=== PATIENT | male | born 1970 | race Caucasian/White ===

== ENCOUNTER 2017-05-08 11:58 | Emergency (ER) | payer OTHER ==
[~2017-05-08] VITALS: Ht 175.3 cm; Wt 86.2 kg
[~2017-05-08 11:58] MED LIST: BACLOFEN10 M1 PO; DILAUDID2 M1 PO; HYDROCODONE/ACE1 TA1 PO; IBUPROFEN800 M1 PO; OXYCODONE-ACET1 EAC1 PO; PERCOCET 5-3251 EACH PO; TAMSULOSIN HCL0.4 M1 PO; XANAX0.5 M1 PO
[2017-05-08 12:09] VITALS: BP 141/93
[2017-05-08] MEDS ORDERED: AMOXICILLIN875 M1 PO (13:51)
[2017-05-08] MEDS ORDERED: PERCOCET 5-3251 EACH PO (13:51)
[2017-05-08] MEDS ORDERED: BACTRIM DS TAB1 EACH PO (13:51)
--- NOTE | 2017-05-08 13:52 | ED SKIN/ALLERGY COMPLAINT ---
History of Present Illness General Chief Complaint: Skin Rash/ Abcess Stated Complaint: INFECTION TO LEFT ARM Source: patient Exam Limitations: no limitations Vital Signs & Intake/Output Vital Signs & Intake/Output Vital Signs Date Time Temp Pulse Resp B/P B/P Pulse O2 O2 Flow FiO2 Mean Ox Delivery Rate 05/08 1209 98.2 88 20 141/93 98 Room Air Allergies Coded Allergies: NO KNOWN ALLERGIES (09/13/16) Reconcile Medications Alprazolam (Xanax) 0.5 MG TABLET 1 TAB PO TIDPRN PRN ANXIETY Amoxicillin 875 MG TABLET 1 TAB PO BID ABSCESS Baclofen 10 MG TABLET 1 TAB PO TIDPRN PRN muscle spasm/strain Hydromorphone HCl (Dilaudid) 2 MG TABLET 1 TAB PO 4XDP PRN PAIN Ibuprofen 800 MG TABLET 1 TAB PO Q6PRN PRN pain Oxycodone HCl/Acetaminophen (Percocet 5-325 MG Tablet) 5 MG-325 MG TABLET 1-2 TAB PO Q6P PRN PAIN Oxycodone HCl/Acetaminophen (Percocet 5-325 MG Tablet) 5 MG-325 MG TABLET 1-2 TAB PO Q6P PRN severe pain Sulfamethoxazole/Trimethoprim (Bactrim Ds Tablet) 800 MG-160 MG TABLET 1 TAB PO BID ABSCESS Triage Note: PT STATES HE CUT HIS ARM LAST WEEK WHILE WORKING OUTSIDE AND IT'S INFECTED NOW. Triage Nurses Notes Reviewed? yes Onset: Abrupt Duration: week(s): (1), constant Timing: recent history Severity: moderate, severe Location: extremities No Modifying Factors: none HPI: 46-year-old male comes into emergency room with swelling and pain to his right wrist. Patient reports that a week ago he had cut his right wrist by accident on [employer] and now reports it is swollen and painful. Patient reports it's red. Patient has a history of abscesses in the past. Patient reports she has subjective fever. Some nausea but no vomiting. Denies any other associated symptoms. (TOSHA GOLD) Past History Travel History Traveled to [place] past 21 day No Medical History Any Pertinent Medical History? see below for history Neurological: NONE EENT: NONE Cardiovascular: NONE Respiratory: NONE Gastrointestinal: GALLSTONES Hepatic: NONE Renal: nephrolithiasis Musculoskeletal: NONE Psychiatric: NONE Endocrine: NONE Blood Disorders: NONE Cancer(s): NONE LUNCH TRUCK DRIVER/Reproductive: NONE Surgical History Surgical History: none Psychosocial History Who do you live with Family What is your primary language Croatian Tobacco Use: Current Daily Use Daily Tobacco Use Amount/Type: => 5 Cigarettes daily ETOH Use: denies use Illicit Drug Use: denies illicit drug use Family History Hx Contributory? No (TOSHA GOLD) Review of Systems Review of Systems Constitutional: Reports: no symptoms. EENTM: Reports: no symptoms. Respiratory: Reports: no symptoms. Cardiovascular: Reports: no symptoms. GI: Reports: no symptoms. Genitourinary: Reports: no symptoms. Musculoskeletal: Reports: see HPI. Skin: Reports: see HPI. Neurological/Psychological: Reports: no symptoms. Hematologic/Endocrine: Reports: no symptoms. Immunologic/Allergic: Reports: no symptoms. All Other Systems: Reviewed and Negative (TOSHA GOLD) Physical Exam Physical Exam General Appearance: well developed/nourished, mild distress Head: atraumatic Eyes: Bilateral: normal appearance. Ears, Nose, Throat: normal ENT inspection, hearing grossly normal Neck: normal inspection Respiratory: no respiratory distress Cardiovascular: regular rate/rhythm Back: normal inspection Extremities: normal inspection, normal range of motion, no edema, radial pulses 2+, full range of motion of hand, Neurologic/Psych: awake, alert, oriented x 3, normal mood/affect Skin: intact, rash Skin Problem Location: upper extremities Skin Problem Character: swelling and redness to right wrist on the dorsal aspect , fluctuance, tenderness with palpation, (TOSHA GOLD) Progress Differential Diagnosis: abscess/cellulitis, contact dermatitis, osteomyelitis, sepsis, Lyme disease, tetanus Plan of Care: Orders Procedure Date/time Status EXTREMETIES CULTURE 05/08 1353 Active Microbiology 05/08 1400 EXTREMITIE: Culture & Sensitivity - RECD 05/08 1400 EXTREMITIE: Gram Stain - RECD Departure Departure Disposition: HOME OR SELF CARE Condition: Stable Clinical Impression Primary Impression: Skin abscess Referrals: PATIENT HAS NO PRIMARY CARE DR (PCP/Family) Additional Instructions: Take Bactrim, amoxicillin, and Percocet as prescribed. Return in 2 days for packing removal and wound check. Return sooner if any other concerns worsening symptoms. Please go over all results of today's visit with your primary care doctor. Contact your primary care doctor to let them know you were here in the emergency room. There may be nonspecific findings which may not be related to your visit today here in the emergency room but may require further evaluation and chronic monitoring by your primary care doctor. If you had a laceration today the chance of foreign body always remains. You should follow-up with your primary care doctor for recheck in 3-5 days for a wound check. If you had an x-ray done there is a chance that a fracture could have been missed on initial read and you should follow-up with your primary care doctor for repeat x-rays if symptoms persist. If your blood pressure was elevated here in the emergency room please have rechecked by her primary care doctor within the next 48 hours by your primary care doctor. If you were prescribed a narcotic here in the emergency room or any type of controlled substances you're not allowed to drive while taking this medication or operate any type of heavy machinery. Narcotics can make you feel lightheaded dizziness nausea and can cause constipation. You may need to bean picker a stool softener. Thank you for choosing [facility] emergency room. Please return to the emergency room immediately if you have any other concerns worsening of symptoms. Departure Forms: Customer Survey General Discharge Information Prescriptions: Current Visit Scripts Oxycodone HCl/Acetaminophen (Percocet 5-325 MG Tablet) 1-2 TAB PO Q6P PRN PAIN #10 TAB Amoxicillin 1 TAB PO BID #20 TAB Sulfamethoxazole/Trimethoprim (Bactrim Ds Tablet) 1 TAB PO BID #20 TAB (TOSHA GOLD) PA/LEVEL VIAL INSPECTOR Co-Sign Statement Statement: ED Attending supervision documentation- I saw and evaluated the patient. I have also reviewed all the pertinent lab results and diagnostic results. I agree with the findings and the plan of care as documented in the PA's/LEVEL VIAL INSPECTOR's documentation. x I have reviewed the ED Record and agree with the PA's/LEVEL VIAL INSPECTOR's documentation. [] Additions or exceptions (if any) to the PAs/LEVEL VIAL INSPECTOR's note and plan are summarized below: [] (OMER BONDS,KATHERINE) Procedures Incision and Drainage Site: right wrist Blade Size: 11 I & D Procedure: Yes: betadine prep, sterile drapes applied, sterile dressing applied, wick placed. Progress: 2% lidocaine, 4 mL injected, copious amounts of white discharge, (TOSHA GOLD)
== END 2017-05-08 14:12 ==
LOC: ERH 11:58
DX: L02.413 Cutaneous abscess of right upper limb (principal)
CPT/HCPCS: 87070; 87071; 87147; J2001